=== PATIENT | male | born 1990 | race Caucasian/White ===

== ENCOUNTER 2021-12-05 19:20 | Emergency (ER) | payer OTHER ==
[2021-12-05] MEDS ORDERED: Lorazepam 1 MG TAB ONE (20:26)
== END 2021-12-05 21:00 | disposition home or self-care (01) ==
LOC: CSHERS 19:20
DX: F41.9 Anxiety disorder, unspecified (principal); F17.220 Nicotine dependence, chewing tobacco, uncomplicated; Z79.899 Other long term (current) drug therapy
CPT/HCPCS: 99284

== ENCOUNTER 2022-03-03 10:47 | Emergency (ER) | payer OTHER ==
[2022-03-03 11:36] LABS: #Eosinphils 0.1 10x3/uL (0.0-0.5); #Monocytes 0.7 10x3/uL (0.0-1.1); #Neutrophils 5.1 10x3/uL (1.5-8.4); %Basophils 0.4 % (0.0-2.0); %Eosinophils 1.6 % (0.0-6.0); %Lymphocytes 29.1 % (18.0-47.0); %Monocytes 7.8 % (0.0-10.0); %Neutrophils 60.9 % (40.0-75.0); Hemoglobin 14.2 g/dL (13.5-17.5); Mean Corpuscular HGB CONC 36.1 g/dL (32.0-36.0); Mean Corpuscular Hemoglobin 32.4 pg (27.0-33.0); Mean Corpuscular Volume 89.7 fl (81.2-95.1); Mean Platelet Volume 9.6 fl (7.4-10.4); Platelet Count 247 10x3/uL (150-450); RBC Distribution Width 12.4 % (11.5-14.5); Red Blood Cell (RBC) Count 4.38 10x6/uL (4.32-5.72); White Blood Cell (WBC) Count 8.4 10x3/uL (3.5-10.5)
[2022-03-03 11:57] LABS: ALT (SGPT) 37 U/L (8-55); AST (SGOT) 17 U/L (5-34); Albumin 4.5 g/dL (3.5-5.0); Alkaline Phosphatase 52 U/L (40-110); Anion Gap 15 mmol/L (10-20); BUN (Urea Nitrogen) 20 mg/dL (8.9-20.6); Bilirubin, Total 1.4 mg/dL (0.2-1.2); CK (CPK) 85 U/L (30-200); Calc. Creatinine Clearance 0 mL/min (70-130); Calcium 9.6 mg/dL (7.8-10.44); Carbon Dioxide 25 mmol/L (22-29); Chloride 97 mmol/L (98-107); Estimated GFR 116; Globulin 2.3 g/dL (2.4-3.5); Glucose 100 mg/dL (70-105); Potassium 3.8 mmol/L (3.5-5.1); Protein, Total 6.8 g/dL (6.0-8.3); Sodium 133 mmol/L (136-145)
[2022-03-03 13:15] LABS: Bilirubin Neg (Negative); Blood, Urine Negative (Negative); Clarity Clear (Clear); Glucose, Urine (Dipstick) Normal (Negative); Ketone, Urine Negative (Negative); Leukocyte Negative (Negative); Nitrite Negative (Negative); Protein, Urine (Dipstick) Negative (Neg-Trace); Urobilinogen Normal mg/dL (Less than 2)
== END 2022-03-03 13:28 | disposition home or self-care (01) ==
LOC: CSHERS 10:47
DX: R55 Syncope and collapse (principal); F17.220 Nicotine dependence, chewing tobacco, uncomplicated
CPT/HCPCS: 71045; 72170; 80053; 81003; 82550; 83605; 84443; 84484; 85025; 87086; 93005; 96360

== ENCOUNTER 2023-06-13 14:40 | Emergency (ER) | payer OTHER, SELFPAY ==
[2023-06-13] MEDS ORDERED: fentaNYL 50 mcg/mL 1 mL Vial ONE (15:36)
[2023-06-13] MEDS ORDERED: Ketorolac Tromethamine 30 MG/ML VIAL ONE (15:37)
[2023-06-13] MEDS ORDERED: Ondansetron PF 4 MG/2 ML Vial ONE (15:37)
== END 2023-06-13 16:41 | disposition home or self-care (01) ==
LOC: CSHERS 14:40
DX: S30.1XXA Contusion of abdominal wall, initial encounter (principal); F17.290 Nicotine dependence, other tobacco product, uncomplicated; V49.9XXA Car occupant (driver) (passenger) injured in unspecified traffic accident, initial encounter
CPT/HCPCS: 71260; 74177; 96374; 96375; J1885; J2405; J3010